=== PATIENT | male | born 1990 | race Caucasian/White ===

== ENCOUNTER 2021-10-27 16:18 | Emergency (ER) | payer OTHER, SELFPAY ==
[2021-10-27 16:34] VITALS: BP 140/77; PULSE 76; RESP 18; TEMP 36.6; O2SAT 98
--- NOTE | 2021-10-27 17:16 | ED.GENADULT ---
HPI - General Adult General Chief complaint: Upper Respiratory Infection Stated complaint: sinus pressure Source: patient Mode of arrival: ambulatory Limitations: no limitations History of Present Illness HPI narrative: 31 y/o male. Presents to [facility] today with acute complaints of increased nasal congestion, purulent nasal discharge, maxillary facial 'pressure', as well as RT otalgia worsening in the past 2 weeks. Client reports a history of 'sinus issues' and has been working with PCP to establish ENT referral. He denies fever, chills. No sore throat. No cough, chest congestion, dyspnea. No known ill contacts or current viral Covid 19 concerns. No additional acute c/o illness upon PE. Related Data Home Medications Medication Instructions Recorded Confirmed cholecalciferol (vitamin D3) 125 mcg PO DAILY 10/27/21 10/27/21 Allergies Allergy/AdvReac Type Severity Reaction Status Date / Time No Known Allergies Allergy Verified 10/27/21 16:43 Review of Systems Review of Systems: CONSTITUTIONAL: Denies fever, chills, sweats. EYES: Denies visual changes, redness, discharge. ENT: Positive rhinorrhea, congestion, otalgia. No sore throat. CARDIOVASCULAR: Denies chest pain, palpitations, edema. RESPIRATORY: Denies dyspnea, wheezing, cough GASTROINTESTINAL: Denies abdominal pain, nausea, vomiting, diarrhea. GENITOURINARY: Denies dysuria, hematuria, abnormal discharge SKIN: Denies rash or itching. MUSCULOSKELETAL: Denies acute back pain, joint pain, or myalgia. NEUROLOGIC: Denies numbness, or focal weakness. PSYCHIATRIC: Denies anxiety or depression. All systems reviewed & are unremarkable except as noted in HPI and below Exam Narrative: GENERAL: This is a well-nourished, well-developed adult, in no apparent distress. HEAD: normocephalic, atraumatic. EYES: PERRL. Sclera clear/white. EARS: External ears normal, auditory canals clear and without drainage, TMs normal. NOSE: External nose normal. Positive Rhinorrhea, bilateral nare discharge, no obstruction, nares patent. THROAT: Mucous membranes moist, posterior pharynx is erythematous, w/o exudative changes. NECK: Neck supple, non-tender without lymphadenopathy, masses or thyromegaly. CARDIOVASCULAR: Regular rate and rhythm without murmurs, gallops, or rubs. RESPIRATORY: Clear to auscultation. Breath sounds equal bilaterally. No wheezes, rales, or rhonchi. GASTROINTESTINAL: Abdomen soft, non-tender, nondistended. Bowel sounds are active. No guarding. SKIN: warm, intact with no suspicious lesions or rash, good texture and turgor. NEURO: Alert, active, and age appropriate. No focal neurologic deficits. EXTREMITIES: Negative. Course Course Level of Care: Express Care Visit Vital Signs Vital signs: Vital Signs Temperature 36.6 C 10/27/21 16:34 Pulse Rate 76 10/27/21 16:34 Respiratory Rate 18 10/27/21 16:34 Blood Pressure 140/77 10/27/21 16:34 Pulse Oximetry 98 10/27/21 16:34 Temperature 36.6 C 10/27/21 16:34 Pulse Rate 76 10/27/21 16:34 Respiratory Rate 18 10/27/21 16:34 Blood Pressure 140/77 10/27/21 16:34 Pulse Oximetry 98 10/27/21 16:34 Medical Decision Making MDM Narrative Medical decision making narrative: -Afebrile, appears non-toxic. 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 -S/S > 2 Weeks, making bacterial component more likely. Start Amoxicillin & Medrol regimen OP as directed. -May resume all other OTC Nasal sprays and remedies, daily antihistamine is advised. -PCP F/U 1 WK. -ER W/Emergent health status changes. Pt agrees. Differential Diagnosis Differential Diagnosis: Differential Diagnosis: Consideration of the following conditions may be warranted for the presenting problem, they are not final diagnoses: upper respiratory infection, otitis media, sinusitis, RSV viral infection, bronchit
== END 2021-10-27 17:04 | disposition home or self-care (01) ==
PROVIDERS: Emergency Provider Nurse Practitioner Adult Health
DX: J01.00 Acute maxillary sinusitis, unspecified (principal)
CPT/HCPCS: 99203; G0463